=== PATIENT | female | born 1955 | race Caucasian/White ===

== ENCOUNTER 2020-08-15 07:54 | Day surgery (SDC) | payer OTHER, SELFPAY ==
[2020-08-13 16:07] LABS: COVID AG,FIA SOURCE NASOPHARYNGEAL
[~2020-08-15 07:54] MED LIST: AMLO10TA55 PO; ASPI-1198 PO; CEPH500C2 PO; CLON0.1T PO; GABA100T PO; GLIP5TAB11 PO; HYDR50TA PO; LOVA20TA3 PO; METF-960 PO; OLME40TA8 PO; RANI150C4 PO; SPIR25 PO
[2020-08-15] MEDS ORDERED: SODIUM CHLORIDE 0.9% 1,000 ML IV ONE (08:00)
[2020-08-15] MEDS ORDERED: SODIUM CHLORIDE 0.9% 1,000 ML ONE (08:06)
[2020-08-15 08:35] LABS: BASOPHILS % (AUTO) 1.3 % (0.0-2.0); EOSINOPHILS % (AUTO) 3.7 % (1.0-6.0); HEMATOCRIT 34.5 % (36-46); HEMOGLOBIN 11.2 g/dL (12.0-16.0); LYMPHOCYTES # (AUTO) 2.6 K/uL (1.0-4.8); LYMPHOCYTES % (AUTO) 33.7 % (22.0-44.0); MEAN CORPUSCULAR HEMOGLOBIN 29.6 pg (26.0-34.0); MEAN CORPUSCULAR HGB CONC 32.6 G/dL (31.0-37.0); MEAN CORPUSCULAR VOLUME 91 fL (80-100); MONOCYTES # (AUTO) 0.5 K/uL (0.1-1.0); MONOCYTES % (AUTO) 5.8 % (2.0-9.0); NEUTROPHILS # (AUTO) 4.4 K/uL (1.8-7.7); NEUTROPHILS % (AUTO) 55.5 % (40.0-70.0); PLATELET COUNT (AUTO) 177 K/uL (150-450)
[2020-08-15 08:47] LABS: CALCIUM, TOTAL 9.8 mg/dL (8.8-10.5); CREATININE 2.2 mg/dL (0.60-1.30); POTASSIUM 4.8 mmol/L (3.5-5.1)
[2020-08-15 08:50] LABS: INR 1.1 (0.9-1.1); PROTHROMBIN TIME 11.5 SEC (9.4-11.6)
[2020-08-15 08:53] LABS: ALBUMIN 4.3 g/dL (3.4-5.0); BILIRUBIN,TOTAL 0.4 mg/dL (0.1-1.0); TOTAL PROTEIN, SERUM 8.2 g/dL (6.4-8.2)
[2020-08-15] MEDS ORDERED: ATOR20TA65 PO (08:57)
[2020-08-15] MEDS ORDERED: CARV25TA32 PO (08:57)
[2020-08-15] MEDS ORDERED: LOSA25TA21 PO (08:57)
[2020-08-15] MEDS ORDERED: FURO40TA5 PO (08:57)
[2020-08-15] MEDS ORDERED: INSU100I26 SQ (08:57)
[2020-08-15] MEDS ORDERED: ALLO100T PO (08:57)
[2020-08-15] MEDS ORDERED: HYDR25TA84 PO (08:57)
[2020-08-15 09:48] VITALS: BP 165/78
[2020-08-15] MEDS ORDERED: SODIUM BICARBONATE 50 MEQ/50 ML VIAL ONE (09:48)
[2020-08-15] MEDS ORDERED: IOHEXOL 300 MG/ML 150 ML VIAL ONE (09:48)
[2020-08-15] MEDS ORDERED: LIDOCAINE/PF 1% 30 ML VIAL ONE (09:48)
[2020-08-15] MEDS ORDERED: HEPARIN SODIUM 1000 UNITS/NS 1,000 ML ONE (09:48)
[2020-08-15] MEDS ORDERED: FentaNYL CITRATE PF 100 MCG/2 ML VIAL ONE (09:57)
[2020-08-15] MEDS ORDERED: MIDAZOLAM HCL 2 MG/2 ML VIAL ONE ×2 (09:57→11:23)
[2020-08-15] MEDS ORDERED: IOHEXOL 300 MG/ML 50 ML VIAL ONE (09:57)
[2020-08-15] MEDS ORDERED: IOHEXOL 300 MG/ML 100 ML VIAL ONE (09:58)
[2020-08-15] MEDS ORDERED: IOHEXOL 300 MG/ML 50 ML VIAL IARTER ONE (11:30)
[2020-08-15] MEDS ORDERED: FentaNYL CITRATE PF 100 MCG/2 ML VIAL IVP ONE ×3 (11:30)
[2020-08-15] MEDS ORDERED: MIDAZOLAM HCL 2 MG/2 ML VIAL IVP ONE ×3 (11:30)
[2020-08-15] MEDS ORDERED: HEPARIN SODIUM 1000 UNITS/NS 1,000 ML IARTER ONE (11:30)
[2020-08-15] MEDS ORDERED: IOHEXOL 300 MG/ML 100 ML VIAL IARTER ONE (11:30)
[2020-08-15] MEDS ORDERED: LIDOCAINE 1% 30 ML/SOD BICARB 8.4% 4 ML SQ ONE (11:30)
[2020-08-15 11:49] VITALS: BP 142/69
[2020-08-15] MEDS ORDERED: SODIUM CHLORIDE 0.9% 500 ML IV ONE (12:00)
== END 2020-08-15 15:15 | disposition home or self-care (01) ==
LOC: CATHLAB 07:54
PROVIDERS: ATTEND Internal Medicine Cardiovascular Disease
DX: R94.39 Abnormal result of other cardiovascular function study (principal); E11.9 Type 2 diabetes mellitus without complications; R07.9 Chest pain, unspecified; M19.90 Unspecified osteoarthritis, unspecified site; D64.9 Anemia, unspecified; I50.9 Heart failure, unspecified; E11.22 Type 2 diabetes mellitus with diabetic chronic kidney disease; Z90.710 Acquired absence of both cervix and uterus; E11.21 Type 2 diabetes mellitus with diabetic nephropathy; E78.5 Hyperlipidemia, unspecified; Z98.890 Other specified postprocedural states; I13.0 Hypertensive heart and chronic kidney disease with heart failure and stage 1 through stage 4 chronic kidney disease, or unspecified chronic kidney disease; Z79.82 Long term (current) use of aspirin; Z79.899 Other long term (current) drug therapy
CPT/HCPCS: 36415; 80053; 85025; 85610; 85730; 87426; 93005; 93458; 99152; C1760; C9803; J1644; J2250; J3010; J3490 ×2; J7030; Q9967 ×2